=== PATIENT | male | born 1965 | race Caucasian/White ===

== ENCOUNTER 2021-12-27 07:27 | Emergency (ER) | payer OTHER ==
[2021-12-27] MEDS ORDERED: Zofran 4 MG/2 ML VIAL IV ONE (07:39)
[2021-12-27] MEDS ORDERED: Sodium Chloride 0.9% 1000 ML 1,000 ML IV STA (07:39)
[2021-12-27] MEDS ORDERED: Hydromorphone 1 mg/ml Injection IV ONE (07:39)
[2021-12-27] MEDS ORDERED: Zofran 4 MG/2 ML VIAL ONE (07:46)
[2021-12-27] MEDS ORDERED: Hydromorphone 1 mg/ml Injection ONE (07:46)
[2021-12-27] MEDS ORDERED: Sodium Chloride 0.9% 1000 ML 1,000 ML ONE (07:47)
--- NOTE | 2021-12-27 07:51 | ERPHSYRPT ---
- History of Present Illness Time Seen by Provider: 12/27/21 07:48 Historian: patient, family Exam Limitations: no limitations Physician History: Patient is a 56-year-old male who had abdominal pain for 3 days. He does have a history of kidney stones in the remote past his pain is primarily in the left flank and in the suprapubic area and the penis. He has gross hematuria he is on Eliquis twice a day and had a CABG x5 7 months ago. He also has severe diarrhea he is got had no fever or chills he has had cold sweats. Timing/Duration: day(s) (3) Activities at Onset: none Quality: cramping, stabbing Abdominal Pain Onset Location: flank (Left flank) Pain Radiation: groin Severity of Pain-Max: severe Severity of Pain-Current: severe Modifying Factors: Improves With: nothing, vomiting Associated Symptoms: diarrhea, nausea, No vomiting Previous symptoms: other (Kidney stones in the remote past) Allergies/Adverse Reactions: Penicillins Allergy (Verified 12/27/21 07:49) Home Medications: Amlodipine Besylate [Norvasc] 10 mg PO DAILY 12/27/21 [History] Apixaban [Eliquis 5 mg Tablet] 5 mg PO BID 12/27/21 [History] Aspirin EC 81 mg [Ecotrin 81 mg] 81 mg PO DAILY 12/27/21 [History] Atorvastatin Calcium [Lipitor] 40 mg PO DAILY 12/27/21 [History] Famotidine [Acid Robotics Specialist] 20 mg PO DAILY 12/27/21 [History] Levothyroxine Sodium [Levothyroxine] 175 mcg PO DAILY 12/27/21 [History] Losartan Potassium [Cozaar] 100 mg PO DAILY 12/27/21 [History] Meloxicam 15 mg [Meloxicam 15 MG] 15 mg PO DAILY 12/27/21 [History] Metoprolol Tartrate 25 mg [Lopressor 25MG Tab] 25 mg PO BID 12/27/21 [History] Tamsulosin HCl 0.4 mg [Flomax 0.4 MG] 0.8 mg PO DAILY 12/27/21 [History] - Review of Systems Constitutional: No Fever, No Chills Eyes: No Symptoms Ears, Nose, & Throat: No Symptoms Respiratory: No Cough, No Dyspnea Cardiac: No Chest Pain, No Edema, No Syncope Abdominal/Gastrointestinal: Abdominal Pain, No Nausea, No Vomiting, No Diarrhea Genitourinary Symptoms: Hematuria, Flank Pain, Testicle Pain, No Dysuria Musculoskeletal: No Back Pain, No Neck Pain Skin: No Rash Neurological: No Dizziness, No Focal Weakness, No Sensory Changes Psychological: No Symptoms Endocrine: No Symptoms All Other Systems: Reviewed and Negative - Nursing Vital Signs Nursing Vital Signs: Initial Vital Signs Temperature 96.4 F 12/27/21 07:30 Pulse Rate 102 H 12/27/21 07:30 Blood Pressure 100/67 12/27/21 07:30 O2 Sat by Pulse Oximetry 95 12/27/21 07:30 Pain Scale Pain Intensity 0 - Physical Exam General Appearance: mild distress, alert Eye Exam: PERRL/EOMI, eyes nml inspection Ears, Nose, Throat Exam: normal ENT inspection, pharynx normal, moist mucous membranes Neck Exam: normal inspection, non-tender, supple, full range of motion Respiratory Exam: normal breath sounds, lungs clear, No respiratory distress Cardiovascular Exam: regular rate/rhythm, normal heart sounds Gastrointestinal/Abdomen Exam: soft, other (Distended bladder), No tenderness, No mass Back Exam: normal inspection, normal range of motion, CVA tenderness (Left), No vertebral tenderness Extremity Exam: normal inspection, normal range of motion, pelvis stable Neurologic Exam: alert, oriented x 3, cooperative, normal mood/affect, nml cerebellar function, sensation nml, No motor deficits Skin Exam: normal color, warm, dry SpO2 Interpretation: normal O2 Delivery: Room Air - Course EKG Interpreted by Me: RATE (93), Sinus Rhythm, NORMAL AXIS, NORMAL INTERVALS, ST Elev (Computer is suggestive of some ST elevation slightly in the inferior leads), Non-specific ST Changes Ordered Tests: Active Orders 24 hr Category Date Time Status EKG-ER Only STAT Care 12/27/21 07:39 Active IV Insertion STAT Care 12/27/21 07:39 Active ABDOMEN AND PELVIS W/0 CONTRAS [CT] Stat Exams 12/27/21 08:17 Completed AMYLASE Stat Lab 12/27/21 07:45 Completed CBC W DIFF Stat Lab 12/27/21 07:45 Completed CMP Stat Lab 12/27/21 07:45 Completed CULTURE,URINE Stat Lab 12/27/21 08:09 Received LIPASE Stat Lab 12/27/21 07:45 Completed Lactic Acid Stat Lab 12/27/21 08:00 Completed Manual Differential NC Stat Lab 12/27/21 07:45 Completed PROTIME WITH INR Stat Lab 12/27/21 07:45 Completed TROPONIN Q3H Lab 12/27/21 07:45 Completed TROPONIN Q3H Lab 12/27/21 10:43 Received TROPONIN Q3H Lab 12/27/21 13:45 Ordered TROPONIN Q3H Lab 12/27/21 16:45 Ordered TROPONIN Q3H Lab 12/27/21 19:45 Ordered UA W/RFX CULTURE Stat Lab 12/27/21 08:09 Completed Medication Summary Discontinued Medications Generic Name Dose Route Start Last Admin Trade Name Freq PRN Reason Stop Dose Admin Hydromorphone HCl 1 mg 12/27/21 07:39 12/27/21 08:00 Hydromorphone 1 Mg/1ml Inj 1 Mg/Ml Syringe IV 12/27/21 07:40 1 mg STAT ONE Administration Hydromorphone HCl Confirm 12/27/21 07:46 Hydromorphone 1 Mg/1ml Inj 1 Mg/Ml Syringe Administered 12/27/21 07:47 Dose 1 mg .ROUTE .STK-MED ONE Sodium Chloride 1,000 mls @ 999 mls/hr 12/27/21 07:39 12/27/21 09:09 Sodium Chloride 0.9% 1000 Ml IV 12/27/21 08:39 Infused .Q1H1M STA Infusion Sodium Chloride Confirm 12/27/21 07:47 Sodium Chloride 0.9% 1000 Ml Administered 12/27/21 07:48 Dose 1,000 mls @ ud .ROUTE .STK-MED ONE Levofloxacin/Dextrose 750 mg in 150 mls @ 100 mls/hr 12/27/21 09:35 12/27/21 09:42 Levofloxacin 750mg/150ml D5w IV 12/27/21 11:04 100 mls/hr STAT STA 100 mls/hr Administration Levofloxacin/Dextrose Confirm 12/27/21 09:41 Levofloxacin 750mg/150ml D5w Administered 12/27/21 09:42 Dose 750 mg in 150 mls @ ud IV .STK-MED ONE Ondansetron HCl 4 mg 12/27/21 07:39 12/27/21 08:02 Ondansetron Hcl 4 Mg/2 Ml Vial IV 12/27/21 07:40 4 mg STAT ONE Administration Ondansetron HCl Confirm 12/27/21 07:46 Ondansetron Hcl 4 Mg/2 Ml Vial Administered 12/27/21 07:47 Dose 4 mg .ROUTE .STK-MED ONE Lab/Rad Data: Laboratory Result Diagrams 12/27/21 07:45 12/27/21 07:45 Laboratory Results 12/27/21 12/27/21 12/27/21 Range/Units 08:09 08:00 07:45 WBC (4.0-10.5) K/mm3 RBC (4.1-5.6) M/mm3 Hgb (12.5-18.0) gm/dl Hct (42-50) % MCV (78-100) fl MCH (26-32) pg MCHC (32-36) g/dl RDW (11.5-14.0) % Plt Count (150-450) K/mm3 MPV (7.5-11.0) fl PT (9.4-12.5) SECONDS INR (0.8-3.0) Sodium (137-145) mmol/L Potassium (3.5-5.1) mmol/L Chloride (98-107) mmol/L Carbon Dioxide (22-30) mmol/L Anion Gap (5-15) MEQ/L BUN (9-20) mg/dL Creatinine (0.66-1.25) mg/dL Estimated GFR ML/MIN Glucose (74-106) mg/dL Lactic Acid 1.8 (0.4-2.0) Calcium (8.4-10.2) mg/dL Total Bilirubin (0.2-1.3) mg/dL AST (17-59) U/L ALT (0-50) U/L Alkaline Phosphatase (38-126) U/L Troponin I 0.014 (0.000-0.034) ng/mL Serum Total Protein (6.3-8.2) g/dL Albumin (3.5-5.0) g/dL Amylase (30-110) U/L Lipase (23-300) U/L Urinalys Dipstick Clnc MAIN LAB Urine Color ORANGE (YELLOW) Urine Appearance SLIGHTLY CLOUDY (CLEAR) Urine pH 6.0 (5-6) Ur Specific [place] 1.025 (1.005-1.025) POC Urine Protein Conf 30 (Negative) Urine Ketones NEGATIVE (NEGATIVE) Urine Nitrite POSITIVE (NEGATIVE) Urine Bilirubin NEGATIVE (NEGATIVE) Urine Urobilinogen 1 (0-1) mg/dL Urine Leukocytes SMALL (NEGATIVE) Urine WBC (Auto) >100 (0-5) /HPF Urine RBC (Auto) 11-15 (0-2) /HPF U Epithel Cells (Auto) NONE (FEW) /HPF Urine Bacteria (Auto) PACKED (NEGATIVE) /HPF Urine RBC MODERATE (0-5) [place]/ul Urine Mucus (Auto) SLIGHT (NEGATIVE) /HPF Ur Culture Indicated? YES Urine Glucose NEGATIVE (NEGATIVE) mg/dL 12/27/21 12/27/21 12/27/21 Range/Units 07:45 07:45 07:45 WBC 22.1 H (4.0-10.5) K/mm3 RBC 4.87 (4.1-5.6) M/mm3 Hgb 13.7 (12.5-18.0) gm/dl Hct 41.7 L (42-50) % MCV 85.6 (78-100) fl MCH 28.1 (26-32) pg MCHC 32.9 (32-36) g/dl RDW 16.0 H (11.5-14.0) % Plt Count 320 (150-450) K/mm3 MPV 9.3 (7.5-11.0) fl PT 12.2 (9.4-12.5) SECONDS INR 1.17 (0.8-3.0) Sodium 134 L (137-145) mmol/L Potassium 4.2 (3.5-5.1) mmol/L Chloride 98 (98-107) mmol/L Carbon Dioxide 24 (22-30) mmol/L Anion Gap 16.0 H (5-15) MEQ/L BUN 30 H (9-20) mg/dL Creatinine 1.96 H (0.66-1.25) mg/dL Estimated GFR 37.7 ML/MIN Glucose 183 H (74-106) mg/dL Lactic Acid (0.4-2.0) Calcium 9.1 (8.4-10.2) mg/dL Total Bilirubin 2.50 H (0.2-1.3) mg/dL AST 22 (17-59) U/L ALT 22 (0-50) U/L Alkaline Phosphatase 100 (38-126) U/L Troponin I (0.000-0.034) ng/mL Serum Total Protein 6.8 (6.3-8.2) g/dL Albumin 3.9 (3.5-5.0) g/dL Amylase 50 (30-110) U/L Lipase 55 (23-300) U/L Urinalys Dipstick Clnc Urine Color (YELLOW) Urine Appearance (CLEAR) Urine pH (5-6) Ur Specific [place] (1.005-1.025) POC Urine Protein Conf (Negative) Urine Ketones (NEGATIVE) Urine Nitrite (NEGATIVE) Urine Bilirubin (NEGATIVE) Urine Urobilinogen (0-1) mg/dL Urine Leukocytes (NEGATIVE) Urine WBC (Auto) (0-5) /HPF Urine RBC (Auto) (0-2) /HPF U Epithel Cells (Auto) (FEW) /HPF Urine Bacteria (Auto) (NEGATIVE) /HPF Urine RBC (0-5) [place]/ul Urine Mucus (Auto) (NEGATIVE) /HPF Ur Culture Indicated? Urine Glucose (NEGATIVE) mg/dL - Progress Progress: improved Progress Note: 12/27/21 11:10 After a catheter was placed and 1600 cc of fluid returned the patient felt much better. We discussed with him his problem with his prostate perhaps causing the infection and the retention. He is from [place] he is returning there we did speak to his primary care physician's office Dr. Frankie Harvey and they will see him on his arrival in [place]. And refer him to a urologist there. - Departure Departure Disposition: Home Clinical Impression: Urinary tract infection Condition: Stable Critical Care Time: No Referrals: DOCTOR,NO FAMILY [Primary Care Provider] - Follow up/PCP as directed Instructions: Urinary Retention (DC) Prescriptions: Levofloxacin [Levaquin 500 MG Tablet] 500 mg PO DAILY #7 tablet
[2021-12-27 07:52] LABS: Hematocrit 41.7 % (42-50); Hemoglobin 13.7 gm/dl (12.5-18.0); Mean Cell Volume 85.6 fl (78-100); Mean Corpuscular Hemoglobin 28.1 pg (26-32); Mean Corpuscular Hgb Concent. 32.9 g/dl (32-36); Mean Platelet Volume 9.3 fl (7.5-11.0); Platelet Count 320 K/mm3 (150-450); Red Blood Count 4.87 M/mm3 (4.1-5.6); White Blood Count 22.1 K/mm3 (4.0-10.5)
[2021-12-27 08:03] LABS: INR 1.17 (0.8-3.0); PROTIME 12.2 SECONDS (9.4-12.5)
[2021-12-27 08:15] LABS: ALBUMIN 3.9 g/dL (3.5-5.0); BILIRUBIN,TOTAL 2.5 mg/dL (0.2-1.3); Calcium 9.1 mg/dL (8.4-10.2); Creatinine 1 1.96 mg/dL (0.66-1.25); EST GLOMERULAR FILTRATION RATE 37.7 ML/MIN; Potassium 4.2 mmol/L (3.5-5.1); Total Protein 6.8 g/dL (6.3-8.2)
[2021-12-27 08:19] LABS: Appearance SLIGHTLY CLOUDY (CLEAR); Bilirubin NEGATIVE (NEGATIVE); Dipstick done @ ? MAIN LAB; Glucose NEGATIVE (NEGATIVE); Ketones NEGATIVE (NEGATIVE); Nitrite POSITIVE (NEGATIVE); Protein,Urine Dip 30 (Negative); RBC MODERATE Ery/ul (0-5); Specific Gravity 1.025 (1.005-1.025); Urobilinogen 1 mg/dL (0-1)
[2021-12-27 08:23] LABS: Bacteria PACKED /HPF (NEGATIVE); Mucus SLIGHT /HPF (NEGATIVE); WBC >100 /HPF (0-5)
[2021-12-27 08:28] LABS: Urine Cultured Indicated? YES
--- NOTE | 2021-12-27 08:50 | XRAY ---
Indication: Abdomen pain 3 days. Diarrhea. Multiple contiguous axial images obtained through the abdomen and pelvis without contrast using renal stone protocol. Comparison: None Lung bases demonstrate minimal subsegmental atelectasis/scarring. No infiltrate or effusion. Heart not enlarged. No renal calculus in either system. Left kidney is moderately hydronephrotic and both kidneys demonstrate perinephric stranding/fluid. Left ureter is also distended up to 9 mm. Urinary bladder is markedly distended with mild circumferential wall thickening concerning for chronic neurogenic bladder versus chronic outlet obstruction. There are 3 cystic masses immediately posterior and right of the urinary bladder that may represent bladder diverticuli. The largest measures 8.6 cm and smallest measures 1.5 cm. No free fluid/air. Previous gastric bypass surgery. Noncontrasted stomach and bowel loops nonobstructed. Gallbladder distended with a few gallstones, largest 2.8 cm. Remaining liver, pancreas, spleen, and adrenal glands are unremarkable for noncontrast exam. Abdominal aorta is normal in course and caliber. Mild bilateral iliac artery calcifications. Osseous structures intact with mild/moderate degenerative changes throughout the thoracolumbar spine and both hips. Small fatty bilateral inguinal hernias. Impression: 1. Markedly distended urinary bladder with circumferential wall thickening favoring chronic neurogenic bladder versus chronic outlet obstruction. 3 cystic masses posteriorly, probable bladder diverticuli. 2. Left-sided hydronephrosis and left hydroureter without distal calculus. Also bilateral perinephric fluid/stranding. Findings presumed secondary to markedly distended urinary bladder. 3. Cholelithiasis, fatty bilateral inguinal hernias, and chronic bony findings.
[2021-12-27] MEDS ORDERED: LEVOFLOXACIN 750MG/150ML D5W 750 MG/150 ML BAG IV STA (09:35)
[2021-12-27] MEDS ORDERED: LEVOFLOXACIN 750MG/150ML D5W 750 MG/150 ML BAG IV ONE (09:41)
[2021-12-27] MEDS ORDERED: TYLENOL EXTRA STRENGTH 500 MG ONE (11:15)
[2021-12-27] MEDS ORDERED: TYLENOL EXTRA STRENGTH 500 MG PO STA (11:16)
[2021-12-27 11:20] VITALS: BP 128/75; PULSE 109; O2SAT 98
[2021-12-27 13:23] LABS: BAND 4 % (0.0-2.0); Eosinophil 1 % (0.00-3.0); Lymphocytes 7 % (24-44); Monocyte 9 % (0.0-12.0); Platelet Estimate NORMAL (NORMAL); Total Cells Counted 100
== END 2021-12-27 11:55 | disposition home or self-care (01) ==
LOC: ED 07:27
DX: N39.0 Urinary tract infection, site not specified (principal); R10.32 Left lower quadrant pain; R10.12 Left upper quadrant pain; R10.2 Pelvic and perineal pain; R31.0 Gross hematuria; R19.7 Diarrhea, unspecified; Z79.01 Long term (current) use of anticoagulants; Z79.899 Other long term (current) drug therapy
CPT/HCPCS: 36000; 36415; 51702; 74176; 80053; 81015; 82150; 83605; 83690; 84484; 85025; 85610; 87077; 87086; 87186; 93005; 96360; 96365; 96374; 96375; 99285; J1170; J1956; J2405; A9270-GY